=== PATIENT | female | born 1990 | race Hispanic/Latino ===

== ENCOUNTER 2016-07-17 14:57 | Emergency (ER) | payer OTHER ==
[~2016-07-17] VITALS: Ht 149.9 cm; Wt 75.3 kg
[~2016-07-17 14:57] MED LIST: ALBUTEROL0.09 MG/A1 INH; ALBUTEROL0.63 MG/3 INH/SOL; FLEXERIL10 MG PO; KEFLEX500 M1 PO; KETOROLAC TROME10 M1 PO; MIRENA52 MG; NAPROXEN SODIU550 M1 PO; NAPROXEN500 MG PO; NEXPLANON68 M1; NORFLEX100 MG PO; PREDNISONE 20MG20 MG PO; PROAIR HFA8.5 GM INH; ROBAXIN-750750 MG PO; ROBITUSSIN W/CO10 ML PO; TESSALON PERLE100 MG PO; TYLENOL #31 TAB PO; VICODIN 5-3001 EACH PO; VOLTAREN75 MG PO; ZITHROMAX Z-PA250 M1 PO; ZOFRAN4 M1 SL; ZOFRAN4 M2 PO
--- NOTE | 2016-07-17 15:31 | ED GI/GU/ABDOMINAL COMPLAINT ---
History of Present Illness General Chief Complaint: Nausea, Vomiting, Diarrhea Stated Complaint: NVD Source: patient Exam Limitations: no limitations Allergies Coded Allergies: NO KNOWN ALLERGIES (05/14/16) Triage Note: PT TO ED C/O ABD PAIN, N/V/D SINCE LAST NIGHT PT IS 13 WEEKS . DENIES VAGINAL BLEEDING OR DISCHARE. PT IS . DENIES S/S. Triage Nurses Notes Reviewed? yes ? Y Is pt currently ? No Onset: Abrupt Duration: day(s): (2) Timing: multiple episodes today Quality/Severity: moderate, vomiting Location: epigastric Radiation: no radiation Activities at Onset: none Prior Abdominal Problems: similar symptoms Modifying Factors: Worsens With: eating. Associated Symptoms: abdominal pain, nausea/vomiting HPI: This is a 25-year-old female at 3 much gestation presents to the ER with chief complaint of 2 day history of nausea vomiting and diarrhea. She states she has been unable to tolerate any fluids since last night. She hasn't urinated in the last 12 hours. Reports 3-5 episodes of vomiting today when attempting to take some oral fluids. She also had several episodes of diarrhea. Denies any abdominal pain or vaginal bleeding or discharge. Subjective fever last night. She states her children were sick with same symptoms but only for one day. Today she felt like she was going to pass out when she stood up this morning and felt like her vision was blurred. No syncopal history. No chest pain or shortness of breath. (KARRIE JONES,RICH) Vital Signs & Intake/Output Vital Signs & Intake/Output Vital Signs Date Time Temp Pulse Resp B/P Pulse O2 O2 Flow FiO2 Ox Delivery Rate 07/17 2140 97.3 81 18 105/58 98 Room Air 07/17 1830 98.1 86 18 106/53 100 Room Air 07/17 1500 96.8 120 20 121/75 98 Room Air ED Intake and Output 07/18 0000 07/17 1200 Intake Total 2000 Output Total Balance 1999 Intake, IV 1999 Patient 166 lb Weight Reconcile Medications Albuterol Sulfate (Proair Hfa) 8.5 GM HFA.AER.AD 2 PUF INH PRN ASTHMA ( Reported) Cephalexin (Keflex) 500 MG CAPSULE 1 TAB PO BID ADENITIS/POSSIBLE UTI Dicyclomine Hydrochloride (Bentyl) 10 MG CAPSULE 1 CAP PO TID PRN abd cramps Ondansetron (Zofran Odt) 4 MG TAB.RAPDIS 1 TAB SL TID PRN nausea/vomiting LMP (ages 10-50): 13 weeks ago (NAKUL MOREL MD) Past History Travel History Traveled to [place] past 21 day No Medical History Any Pertinent Medical History? 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 No (RICH YOON MD) Review of Systems Review of Systems Constitutional: Reports: fever (SUBJECTIVE). Denies: chills. GI: Reports: abdominal pain, diarrhea, nausea, vomiting. Genitourinary: Denies: discharge, dysuria, frequency, hematuria. Hematologic/Endocrine: Denies: bruising, bleeding, polyuria, polydipsia. Immunologic/Allergic: Denies: splenectomy. (RICH YOON MD) Review of Systems EENTM: Reports: no symptoms. Respiratory: Reports: no symptoms. Cardiovascular: Reports: no symptoms. Musculoskeletal: Reports: no symptoms. Skin: Reports: no symptoms. Neurological/Psychological: Reports: no symptoms. All Other Systems: Reviewed and Negative (NAKUL MOREL MD) Physical Exam Physical Exam General Appearance: well developed/nourished, alert, awake, anxious Head: atraumatic Eyes: Bilateral: normal appearance, PERRL, EOMI. Gastrointestinal: normal bowel sounds, soft, non-tender (RICH YOON MD) Physical Exam Ears, Nose, Throat, Mouth: hearing grossly normal Neck: normal inspection, supple, full range of motion, normal alignment Respiratory: normal breath sounds, chest non-tender, no respiratory distress, quiet respiration, lungs clear Cardiovascular: regular rate/rhythm, normal peripheral pulses, norml femoral pulses equa Peripheral Pulses: 4+ carotid (R), 4+ carotid (L) Back: normal inspection, normal range of motion Extremities: normal range of motion Neurologic/Psych: no motor/sensory deficits, awake, alert, oriented x 3, normal gait, normal mood/affect Skin: intact, normal color, warm/dry Core Measures ACS in differential dx? No Severe Sepsis Present: No Septic Shock Present: No (NAKUL MOREL MD) Progress Diagnostic Imaging: Viewed by Me: Ultrasound. Discussed w/RAD: Ultrasound. Hand-Off Endorsed To: NAKUL MOREL MD Endorsed Time: 1900 Pending: ultrasound (RICH YOON MD) Differential Diagnosis: biliary colic, cholecystitis, gastritis Plan of Care: Orders Procedure Date/time Status URINALYSIS 07/17 1538 Complete LIPASE 07/17 1538 Complete COMPREHENSIVE METABOLIC PANEL 07/17 153 Complete CBC WITHOUT DIFFERENTIAL 07/17 153 Complete ACETONE 07/17 153 Complete Laboratory Tests 07/17/16 1740: Urinalysis MOD H, Urine Color YEL, Urine Clarity HAZY H, Urine pH 6.0, Ur Specific [place] >= 1.030, Urine Protein NEG, Urine Ketones >=80, Urine Nitrite NEG, Urine Bilirubin NEG, Urine Urobilinogen 2.0 H, Ur Leukocyte Esterase NEG, Ur Microscopic SEDIMENT EXAMINED, Urine RBC 3-5, Urine WBC 1-3 H, Ur Epithelial Cells FEW, Urine Mucus FEW, Urine Hemoglobin SMALL H, Urine Glucose NEG 07/17/16 1550: Anion Gap 13, Estimated GFR > 60, BUN/Creatinine Ratio 18.3, Glucose 92, Calcium 9.2, Total Bilirubin 0.7, AST 24, ALT 40, Alkaline Phosphatase 45, Total Protein 6.8, Albumin 4.0, Globulin 2.8, Albumin/Globulin Ratio 1.4, Lipase 47, CBC w Diff NO MAN DIFF REQ, RBC 4.17 L, MCV 89.5, MCH 31.6 H, RDW 12.3, MPV 7.9, Gran % 79.7 H, Lymphocytes % 13.4 L, Monocytes % 6.1, Eosinophils % 0.5, Basophils % 0.3, Absolute Granulocytes 6.2, Absolute Lymphocytes 1.0 L, Absolute Monocytes 0.5, Absolute Eosinophils 0, Absolute Basophils 0, PUBS MCHC 35.3, Acetone Level NEGATIVE 4:52 PM Patient reports improvement of nausea. Still complains of epigastric pain. IV tylenol ordered. 2nd NS bolus infusing. (RICH YOON MD) Radiology Impression: no acute abnormality Initial ED EKG: none (NAKUL MOREL MD) Departure Departure Condition: Stable Referrals: BENJI JONES,GAGE Laguna (PCP/Family) Departure Forms: Customer Survey General Discharge Information (KARRIE JONES,RICH) Departure Time of Disposition: 2128 Disposition: HOME OR SELF CARE Clinical Impression Primary Impression: Nausea, vomiting and diarrhea Secondary Impressions: Abdominal pain affecting Additional Instructions: Clear liquids for 12-24 hours until better Prescriptions: Current Visit Scripts Ondansetron (Zofran Odt) 1 TAB SL TID PRN nausea/vomiting #10 TAB Dicyclomine Hydrochloride (Bentyl) 1 CAP PO TID PRN abd cramps #30 CAP (NAKUL MOREL MD)
[2016-07-17 16:04] LABS: ABSOLUTE BASOPHIL COUNT 0 /CUMM (0.0-0.2); ABSOLUTE EOSINOPHIL COUNT 0 /CUMM (0.0-0.7); ABSOLUTE GRANULOCYTE CT 6.2 /CUMM (1.4-6.5); ABSOLUTE MONOCYTE COUNT 0.5 /CUMM (0.10-0.60); BASOPHIL % 0.3 % (0.0-2.0); EOSINOPHIL % 0.5 % (0-5); GRANULOCYTE % 79.7 % (42.2-75.2); HEMATOCRIT 37.3 % (37-47); MEAN CORPUSCULAR HGB 31.6 PG (27.0-31.0); MEAN CORPUSCULAR HGB CONC 35.3 G/DL (33.0-37.0); MEAN CORPUSCULAR VOLUME 89.5 FL (81.0-99.0); MEAN PLATELET VOLUME 7.9 FL (7.4-10.4); PLATELET COUNT 199 /CUMM (130-400); RBC DISTRIBUTION WIDTH 12.3 % (11.5-14.5); RED BLOOD CELL CT 4.17 /CUMM (4.20-5.40); WHITE BLOOD CELL COUNT 7.8 /CUMM (4.8-10.8)
--- NOTE | 2016-07-17 20:44 | ULTRASOUND REPORT ---
EXAMINATION: US ABDOMEN LIMITED CLINICAL INFORMATION: Evaluate for cholelithiasis. And midepigastric pain and vomiting x2 days. COMPARISON: CT scan of the abdomen and pelvis 02/01/2015. TECHNIQUE: Real-time imaging of the right upper quadrant abdominal viscera. FINDINGS: PANCREAS: The visualized portions of the pancreatic head and body are normal. The tail is obscured by gas. LIVER: Normal. The liver demonstrates normal size, contour and echogenicity. No focal lesion or intrahepatic biliary duct dilatation. GALLBLADDER: Normal. The gallbladder is physiologically distended without evidence of stones, sludge, polyps, wall thickening or pericholecystic fluid. COMMON BILE DUCT: Normal in caliber measuring 0.4 cm in diameter. RIGHT KIDNEY: Normal. No hydronephrosis. No renal calculi or focal parenchymal lesions. The kidney measures 10.4 cm in maximum dimension. FREE FLUID: None. IMPRESSION: Unremarkable right upper quadrant ultrasound with no evidence of cholecystitis and no cholelithiasis.
[2016-07-17] MEDS ORDERED: BENTYL10 M1 PO (21:32)
[2016-07-17] MEDS ORDERED: ZOFRAN ODT4 M1 SL (21:32)
[2016-07-17 21:40] VITALS: BP 105/58
== END 2016-07-17 21:42 ==
LOC: ERH 14:57
PROVIDERS: Emergency Medicine
DX: O26.91 Pregnancy related conditions, unspecified, first trimester (principal); O21.9 Vomiting of pregnancy, unspecified; R11.0 Nausea; R19.7 Diarrhea, unspecified; Z3A.00 Weeks of gestation of pregnancy not specified
CPT/HCPCS: 81001; 96374; 96375; 96376; J0131; J2405